=== PATIENT | male | born 1965 | race Caucasian/White ===

== ENCOUNTER 2021-07-26 11:44 | Emergency (ER) | payer MEDICAID ==
[~2021-07-26] VITALS: Ht 175.3 cm; Wt 83.9 kg
[2021-07-26 11:45] VITALS: BP_SYST 159
[2021-07-26] MEDS ORDERED: IBUP-1971 PO (12:15)
[2021-07-26] MEDS ORDERED: AMOX500C2 PO (12:15)
[2021-07-26] MEDS ORDERED: KETOROLAC TROMETHAMINE 60 MG/2 ML VIAL IM ONE (12:30)
== END 2021-07-26 12:39 | disposition home or self-care (01) ==
LOC: SED 11:44
DX: K05.10 Chronic gingivitis, plaque induced (principal)
CPT/HCPCS: 96372; 99283; J1885

== ENCOUNTER 2023-08-27 20:59 | Emergency (ER) | payer MEDICAID ==
[~2023-08-27] VITALS: Ht 175.3 cm; Wt 81.6 kg
[~2023-08-27 20:59] MED LIST: AMOX500C2 PO; IBUP-1971 PO
[2023-08-27 21:07] VITALS: BP_SYST 161; PULSE 79; RESP 20; TEMP 98; O2SAT 98
[2023-08-27 22:01] LABS: BILIRUBIN,URINE NEGATIVE (NEGATIVE); BLOOD, URINE NEGATIVE (NEGATIVE); CLARITY/URINE CLEAR (CLEAR); COLOR,URINE YELLOW (YELLOW); GLUCOSE,URINE NEGATIVE (NEGATIVE); KETONES,URINE NEGATIVE (NEGATIVE); LEUKOCYTE ESTERASE ,URINE NEGATIVE (NEGATIVE); NITRITE, URINE NEGATIVE (NEGATIVE); PH,URINE 6.5 (5.0-8.0); PROTEIN URINE NEGATIVE (NEGATIVE); UROBILINOGEN,URINE 0.2 (0.2-1.0)
[2023-08-27 22:17] LABS: BARBITURATE, URINE NEGATIVE (NEG <=200); BENZODIAZEPINE, URINE NEGATIVE (NEG <=150); CANNABINOID, URINE NEGATIVE (NEG <=50); COCAINE, URINE NEGATIVE (NEG <=150); METHAMPHETAMINES SCREEN,URINE POSITIVE (NEG <=500); OPIATE, URINE NEGATIVE (NEG <=100); PHENCYCLIDINE SCREEN,URINE NEGATIVE (NEG <=25); URINE AMPHETAMINE POSITIVE (NEG <=500); URINE METHADONE NEGATIVE (NEG <=200); URINE OXYCODONE SCREEN NEGATIVE (NEG <=100)
[2023-08-27 22:17] LABS: BASOPHILS % (AUTO) 0.8 % (0.0-2.0); EOSINOPHILS # (AUTO) 0.1 K/uL (0.0-0.4); EOSINOPHILS % (AUTO) 1.5 % (0.0-4.0); HEMATOCRIT 39.8 % (36-54); HEMOGLOBIN 13.9 g/dL (14.0-18.0); LYMPHOCYTES # (AUTO) 1.3 K/uL (1.0-5.5); LYMPHOCYTES % (AUTO) 26.8 % (20.5-51.5); MEAN CORPUSCULAR HEMOGLOBIN 30 pg (27-31); MEAN CORPUSCULAR HGB CONC 35 % (32-36); MEAN CORPUSCULAR VOLUME 87 fL (79.0-98.0); MONOCYTES # (AUTO) 0.5 K/uL (0.0-1.0); MONOCYTES % (AUTO) 9.5 % (1.7-9.3); NEUTROPHILS % (AUTO) 61.4 % (40.0-70.0); PLATELET COUNT (AUTO) 213 K/uL (130-430); RED BLOOD CELL COUNT(AUTO) 4.57 MIL/uL (4.2-6.2); RED CELL DISTRIBUTION WIDTH 13.9 % (9.0-15.0); WHITE BLOOD COUNT (AUTO) 4.9 K/uL (4.8-10.8)
[2023-08-27 22:18] LABS: UR TRICYCLIC ANTIDEPRESSANTS NEGATIVE (NEG <=300)
[2023-08-27 22:34] LABS: ALANINE AMINOTRANSFERASE 34 U/L (12-78); ALBUMIN 3.8 g/dL (3.4-4.8); ANION GAP 7 (5-15); ASPARTATE AMINOTRANSFERASE 20 U/L (10-37); CALCIUM 8.8 mg/dL (8.4-11.0); CARBON DIOXIDE 32 mmol/L (23-29); CHLORIDE 104 mmol/L (98-107); CREATININE 1.01 mg/dL (0.55-1.30); GFR AFRICAN AMERICAN 98 mL/min (>90); GLUCOSE 95 mg/dL (74-106); POTASSIUM 3.9 mmol/L (3.5-5.1); SODIUM SERUM 143 mmol/L (136-145); TOTAL BILIRUBIN 0.3 mg/dL (0.0-1.0); TOTAL PROTEIN, SERUM 7.5 g/dL (6.4-8.3); UREA NITROGEN, BLOOD 14 mg/dL (8-21)
[2023-08-27 22:36] LABS: GFR NON AFRICAN-AMERICAN 81 mL/min (>90)
[2023-08-27 22:40] LABS: BILIRUBIN,DIRECT 0.1 mg/dL (0.0-0.3); SALICYLATE 2 mg/dL (3-30)
[2023-08-27 22:41] LABS: ACETAMINOPHEN < 1 ug/mL (1-30)
[2023-08-27 22:42] LABS: ALCOHOL, BLOOD < 3 mg/dL (<10)
[2023-08-27] MEDS: NACL 0.9% 1,000 ML IV ONE (22:49)
[2023-08-27] MEDS: cloNIDine HCL 0.1 MG TABLET PO ONE (23:20)
[2023-08-27] MEDS: LISINOPRIL 10 MG TABLET (PRINIVIL) PO ONE (23:21)
[2023-08-28] MEDS: LABETALOL HCL 20 MG/4 ML CARTRIDGE IVP ONE (00:47)
[2023-08-28] MEDS ORDERED: LISI10TA29 PO (02:21)
[2023-08-28 02:32] VITALS: BP_SYST 138; PULSE 64; RESP 16; TEMP 98.1; O2SAT 99
== END 2023-08-28 02:33 | disposition home or self-care (01) ==
LOC: SED 20:59
DX: T43.621A Poisoning by amphetamines, accidental (unintentional), initial encounter (principal); Z59.00 Homelessness unspecified; Z79.899 Other long term (current) drug therapy; Y92.89 Other specified places as the place of occurrence of the external cause
CPT/HCPCS: 99285; 96361; 71045; 80307; 80076; 80048; 81001; 85025; 84484; 36415; 93005; 96374; G0482; J7030; G0480; G0481; 81003